=== PATIENT | female | born 1975 | race Caucasian/White ===

== ENCOUNTER 2020-10-12 23:59 | Observation (INO) ==
[2020-10-13] MEDS ORDERED: ONDANSETRON 4 MG/2 ML VIAL IV STA (00:37)
[2020-10-13 01:13] LABS: Basophils # 0.1 10*3/uL (0.0-0.2); Basophils % 0.8 % (0.0-0.8); Eosinophils # 0.5 10*3/uL (0.0-0.87); Eosinophils % 4.6 % (0.00-10.9); Hematocrit 41.9 VOL% (35.7-47.0); Hemoglobin 14.1 GM/DL (12.0-16.0); Immature Granulocytes % 0.4 %; Immature Granulocytes Absolute 0.04 #; Lymphocytes # 3.3 10*3/uL (1.4-4.0); Lymphocytes % 32.1 % (21.3-54.2); Mean Corpuscular HGB Conc 33.7 GM/DL (32-36); Mean Corpuscular Volume 90.5 FL (87-102); Mean Platelet Volume 11.7 FL (9.6-12.0); Monocytes % 5.7 % (1.7-12.7); Neutrophils % 56.4 % (38.7-73.9); Platelet Count 240 T/CUMM (130-400); Red Blood Count 4.63 MC/CUMM (3.8-5.5); Red Cell Distribution Width 12.2 % (9.3-17.3); White Blood Count 10.2 T/CUMM (4-12)
[2020-10-13 01:28] LABS: PT Patient Result 10.4 SECS (9.8-11.9)
[2020-10-13] MEDS ORDERED: HYDROmorphone 2 MG/1 ML VIAL IV ONE (01:28)
[2020-10-13 01:38] LABS: Alanine Aminotransferase 25 U/L (13-56); Albumin 3.9 G/DL (3.4-5.0); Alkaline Phosphatase 103 U/L (45-117); Aspartate Amino Transferase 13 U/L (0-37); Bilirubin,Total < 0.39 MG/DL (0.2-1.0); Blood Urea Nitrogen 22 MG/DL (7-18); Calcium 8.7 MG/DL (8.5-10.1); Estimated Glom Filtration Rate 89 ML/MIN; Glucose 93 MG/DL (74-106); Osmolality,Calculated 285.1 MOS/KG (273-304); Total Protein 7.5 G/DL (6.4-8.3)
[2020-10-13 01:58] LABS: Bacteria,Urine Occasional /HPF (Few); Bilirubin,Urine Negative (Negative); Blood, Urine Moderate mg/dL (Negative); Glucose,Urine (UA) Negative (Negative); Ketones,Urine 5 mg/dL (Negative); Mucus,Urine Many /LPF (Occasional); Nitrite,Urine Negative (Negative); Protein,Urine Negative; RBC,Urine 33 /HPF (0-4); Squamous Epithelial Cell,Urine Occasional /HPF (0-10); Urine Appearance CLEAR (Clear); Urine Color Yellow (Yellow); Urine Specific Gravity 1.025 (1.001-1.035); Urine Urobilinogen < 2.0 EU/DL (0.2-1.0); WBC,Urine 1 /HPF (0-6)
[2020-10-13] MEDS ORDERED: SODIUM CHLORIDE 0.9% 1,000 ML IV STA (02:24)
[2020-10-13] MEDS ORDERED: ONDANSETRON 4 MG/2 ML VIAL IV PRN ×3 (04:14→07:59)
[2020-10-13] MEDS ORDERED: IBUPROFEN 800 MG TABLET PO PRN (04:14)
[2020-10-13] MEDS ORDERED: BISACODYL 10 MG SUPP RECTAL PRN (04:14)
[2020-10-13] MEDS ORDERED: SODIUM CHLORIDE 0.9% 1,000 ML IV SCH (04:14)
[2020-10-13] MEDS ORDERED: ACETAMINOPHEN 325 MG TABLET PO PRN (04:14)
[2020-10-13] MEDS ORDERED: HYDROmorphone 2 MG/1 ML VIAL IV PRN (04:14)
[2020-10-13] MEDS ORDERED: MAGNESIUM HYDROXIDE SUSP 30 ML UDCUP PO PRN (04:14)
[2020-10-13] MEDS ORDERED: oxyCODONE/ACETAMINOPHEN 5-325 MG TABLET PO PRN ×2 (04:40→07:49)
[2020-10-13] MEDS ORDERED: LACTATED RINGERS 1,000 ML IV SCH ×2 (05:00→08:00)
[2020-10-13] MEDS ORDERED: LIDOCAINE 2% 5 ML VIAL ONE (06:29)
[2020-10-13] MEDS ORDERED: propofoL 200 MG/20 ML VIAL IV ONE (06:29)
[2020-10-13] MEDS ORDERED: ONDANSETRON 4 MG/2 ML VIAL ONE ×2 (06:29→07:41)
[2020-10-13] MEDS ORDERED: SCOPOLAMINE 1.5 MG PATCH TRANSDERM SCH (06:30)
[2020-10-13] MEDS ORDERED: fentaNYL 100 MCG/2 ML VIAL ONE (06:30)
[2020-10-13] MEDS ORDERED: MIDAZOLAM 2 MG/2 ML VIAL ONE (06:30)
[2020-10-13] MEDS ORDERED: SCOPOLAMINE 1.5 MG PATCH TRANSDERM ONE (06:42)
[2020-10-13] MEDS ORDERED: SUCCINYLCHOLINE 200 MG/10 ML VIAL ONE (06:53)
[2020-10-13] MEDS ORDERED: DEXAMETHASONE 4 MG/1 ML VIAL ONE (06:53)
[2020-10-13] MEDS ORDERED: PROMETHAZINE 25 MG/1 ML VIAL ONE (06:53)
[2020-10-13] MEDS ORDERED: PHENYLEPHRINE 1 MG/10 ML SYRINGE IV ONE (07:19)
[2020-10-13] MEDS ORDERED: ceFAZolin 1,000 MG VIAL ONE (07:29)
[2020-10-13] MEDS ORDERED: ePHEDrine 50 MG/ML VIAL ONE (07:31)
[2020-10-13] MEDS ORDERED: LACTATED RINGERS 1,000 ML IV ONE (07:32)
[2020-10-13] MEDS ORDERED: SEVOFLURANE 1 UNIT/15 MINUTE INH ONE (07:40)
[2020-10-13] MEDS ORDERED: MEPERIDINE 50 MG/1 ML VIAL IM PRN (07:49)
[2020-10-13] MEDS ORDERED: diphenhydrAMINE 50 MG/1 ML VIAL IV PRN (07:59)
[2020-10-13] MEDS ORDERED: MEPERIDINE 50 MG/1 ML VIAL IV PRN (07:59)
[2020-10-13] MEDS ORDERED: PROMETHAZINE INJ 25 MG in SODIUM CHLORIDE 0.9% 50 ML IV PRN (07:59)
[2020-10-13] MEDS ORDERED: DOCUSATE SODIUM 100 MG CAPSULE PO SCH (09:00)
[2020-10-13 09:56] LABS: Basophils # 0.1 10*3/uL (0.0-0.2); Basophils % 0.6 % (0.0-0.8); Eosinophils # 0.2 10*3/uL (0.0-0.87); Eosinophils % 2.1 % (0.00-10.9); Hemoglobin 11.7 GM/DL (12.0-16.0); Immature Granulocytes % 0.3 %; Immature Granulocytes Absolute 0.03 #; Lymphocytes # 1.4 10*3/uL (1.4-4.0); Lymphocytes % 16.7 % (21.3-54.2); Mean Corpuscular HGB Conc 32.5 GM/DL (32-36); Mean Corpuscular Volume 94.5 FL (87-102); Mean Platelet Volume 11.9 FL (9.6-12.0); Monocytes % 2.9 % (1.7-12.7); Neutrophils % 77.4 % (38.7-73.9); Platelet Count 173 T/CUMM (130-400); Red Blood Count 3.81 MC/CUMM (3.8-5.5); Red Cell Distribution Width 12.4 % (9.3-17.3); White Blood Count 8.6 T/CUMM (4-12)
[2020-10-13 11:55] VITALS: BP 89/58
== END 2020-10-13 15:15 | disposition home or self-care (01) ==
LOC: N.EDINP 23:59 → N.ED 23:59 → N.OB 10-13 03:23
PROVIDERS: ADMIT Specialist; ATTEND Specialist